=== PATIENT | male | born 1950 | race African-American/Black ===

== ENCOUNTER 2019-09-28 15:07 | Inpatient (IN) | payer OTHER, MEDICARE ==
[~2019-09-28] VITALS: Ht 188 cm; Wt 96.8 kg
[2019-09-28 15:40] LABS: BASOPHILS PERCENT AUTO 1 % (0-2); EOSINOPHILS ABSOLUTE AUTO 0.34 K/mm3 (0.00-0.68); EOSINOPHILS PERCENT AUTO 3 % (0-6); Hematocrit 37.1 % (37.0-53.0); Hemoglobin 12.8 g/dL (13.5-17.5); IMMATURE GRAN ABSOLUTE AUTO 0.05 K/mm3 (0.00-0.10); IMMATURE GRAN PERCENT AUTO 0 % (0-1); LYMPHOCYTES ABSOLUTE AUTO 1.98 K/mm3 (0.84-5.20); LYMPHOCYTES PERCENT AUTO 16 % (21-46); MONOCYTES ABSOLUTE AUTO 1.16 K/mm3 (0.16-1.47); MONOCYTES PERCENT AUTO 9 % (4-13); Mean Corpuscular HGB 30.9 pg (26.0-34.0); Mean Corpuscular HGB Conc 34.5 g/dL (31.5-36.5); Mean Corpuscular Volume 90 fL (80-100); Mean Platelet Volume 12.3 fL (9.1-12.4); NEUTROPHILS ABSOLUTE AUTO 8.65 K/mm3 (1.96-9.15); NEUTROPHILS PERCENT AUTO 71 % (41-73); Platelet Count 239 K/mm3 (150-400); RDW Coefficient Variation 15.7 % (11.7-14.2); RDW Standard Deviation 51.2 fL (35.1-46.3); Red Blood Cell Count 4.14 M/mm3 (4.30-5.90); White Blood Cell Count 12.28 K/mm3 (4.00-11.30)
[2019-09-28 15:45] LABS: Source, Urine Clean Catch
[2019-09-28 16:02] LABS: Appearance, Urine Clear (Clear); Blood, Urine 1+ (Neg); Color, Urine Amber (P-Yellow); Glucose Qualitative, Urine Neg (Neg); Ketones, Urine 1+ (Neg); Leukocyte Esterase, Urine 1+ (Neg); Nitrite, Urine Neg (Neg); Protein, Urine 1+ (Neg); Specific Gravity, Urine 1.025 (1.003-1.022); Urobilinogen, Urine 3+ (Normal)
[2019-09-28 16:09] LABS: Alanine Aminotransfer (ALT/SGP 46 U/L (12-78); Albumin, Blood 2.9 g/dL (3.4-5.0); Albumin/Globulin Ratio 0.6 (0.8-1.8); Alk Phos 220 U/L (50-136); Anion Gap 7 mmol/L (6-16); Aspartate Aminotrans (AST/SGOT 47 U/L (12-37); Bilirubin, Total 12.9 mg/dL (0.1-1.0); Blood Urea Nitrogen 13 mg/dL (8-24); Bun/Creatinine Ratio 16.5 (12.0-20.0); CO2, Blood 25 mmol/L (21-32); Calcium, Blood 8.9 mg/dL (8.5-10.1); Chloride, Blood 107 mmol/L (98-108); Creatinine, Blood 0.79 mg/dL (0.60-1.20); Globulin, Blood 4.5 g/dL (2.2-4.0); Glomerular Filtration Rate >60 (60-); Glucose, Blood 122 mg/dL (70-99); Potassium, Blood 3.9 mmol/L (3.5-5.5); Sodium, Blood 139 mmol/L (136-145); Total Protein, Blood 7.4 g/dL (6.4-8.2)
[2019-09-28 16:35] LABS: Bilirubin, Urine 3+ (Neg)
[2019-09-28 16:37] LABS: Bacteria Mod /hpf; Squamous Epithelial Cells Few /hpf (Few)
[2019-09-28] MEDS ORDERED: METF500 PO (19:37)
[2019-09-28] MEDS ORDERED: PAXIL40 M1 PO (19:38)
[2019-09-28] MEDS ORDERED: AMLO10 PO (19:38)
[2019-09-28] MEDS ORDERED: LISI20 PO (19:38)
[2019-09-28 20:14] LABS: International Normalized Ratio 1.3; Prothrombin Time Results 13.7 Sec (9.7-11.5)
[2019-09-28] MEDS ORDERED: OLAN20 MM (21:14)
--- NOTE | 2019-09-29 04:56 | NUR ---
SHIFT SUMMARY RECIEVED REPORT FROM GABY GARZA, ED. ARRIVED TO MEDICAL FLOOR VIA STRETCHER @ 2147. NO TRANSFER ASSISTANCE NEEDED. ORIENTED TO ROOM AND CALL SYSTEM. A/O, ABLE TO MAKE NEEDS KNOWN. COOPERATIVE WITH CARE. ANSWERS QUESTIONS APPROPRIATELY. NO ACUTE CHANGES NOTED OVERNIGHT. APPEARED TO REST MUCH OF SHIFT. IV FLUIDS INFUSING WITHOUT COMPLICATION. HYPERTENSION NOTED AT BEGINNING OF SHIFT; ALL OTHER VITALS WNL/AFEBRILE. BED REMAINED IN LOWEST POSITION. CALL LIGHT AND BELONGINGS WITHIN REACH. WCTM. REPORT TO DALE GARZA.
[2019-09-29 05:21] LABS: Hematocrit 36.1 % (37.0-53.0); Hemoglobin 12.6 g/dL (13.5-17.5); Mean Corpuscular HGB 31.3 pg (26.0-34.0); Mean Corpuscular HGB Conc 34.9 g/dL (31.5-36.5); Mean Corpuscular Volume 90 fL (80-100); Mean Platelet Volume 12.8 fL (9.1-12.4); Platelet Count 222 K/mm3 (150-400); RDW Coefficient Variation 15.5 % (11.7-14.2); RDW Standard Deviation 50.4 fL (35.1-46.3); Red Blood Cell Count 4.03 M/mm3 (4.30-5.90); White Blood Cell Count 12.19 K/mm3 (4.00-11.30)
[2019-09-29 05:42] LABS: Alanine Aminotransfer (ALT/SGP 41 U/L (12-78); Albumin, Blood 2.7 g/dL (3.4-5.0); Albumin/Globulin Ratio 0.6 (0.8-1.8); Alk Phos 203 U/L (50-136); Anion Gap 6 mmol/L (6-16); Aspartate Aminotrans (AST/SGOT 40 U/L (12-37); Bilirubin, Total 11.8 mg/dL (0.1-1.0); Blood Urea Nitrogen 12 mg/dL (8-24); Bun/Creatinine Ratio 14.7 (12.0-20.0); CO2, Blood 26 mmol/L (21-32); Calcium, Blood 8.6 mg/dL (8.5-10.1); Chloride, Blood 108 mmol/L (98-108); Creatinine, Blood 0.82 mg/dL (0.60-1.20); Globulin, Blood 4.3 g/dL (2.2-4.0); Glomerular Filtration Rate >60 (60-); Glucose, Blood 122 mg/dL (70-99); Potassium, Blood 4.3 mmol/L (3.5-5.5); Sodium, Blood 140 mmol/L (136-145)
--- NOTE | 2019-09-29 14:46 | NUR ---
PT GAVE THIS SALVAGE ENGINEER PERMISSION TO TAKE CARE OF HIM TODAY 09/29/2019.
--- NOTE | 2019-09-29 18:35 | NUR ---
ALERT. ORIENTED. PLEASANT. DENIES PAIN. SKIN JAUNDICE. UNLABORED RESPIRATIONS. AWARE WAITING FOR BED OPENING AT [facility]. AWARE WILL BE NPO AFTER MIDNITE DUE TO POSSIBLE SURGERY IN [place]. [facility]
--- NOTE | 2019-09-30 04:43 | NUR ---
RESTAURANT SERVER SUMMARY NO ACUTE CHANGES THIS SHIFT. PT AAOX4 AND INDEPENDENT IN ROOM. NPO SINCE MIDNIGHT IN PREP FOR POSSIBLE PROCEDURE LATER TODAY [place] [facility] [place] DENIES PAIN, N/V. CONTINUED ON UNASYN Q6H. VSS, WILL CONTINUE TO MONITOR.
[2019-09-30 04:51] LABS: BASOPHILS ABSOLUTE AUTO 0.14 K/mm3 (0.00-0.23); BASOPHILS PERCENT AUTO 1 % (0-2); EOSINOPHILS ABSOLUTE AUTO 0.66 K/mm3 (0.00-0.68); EOSINOPHILS PERCENT AUTO 6 % (0-6); Hemoglobin 12.2 g/dL (13.5-17.5); IMMATURE GRAN ABSOLUTE AUTO 0.06 K/mm3 (0.00-0.10); IMMATURE GRAN PERCENT AUTO 1 % (0-1); LYMPHOCYTES ABSOLUTE AUTO 1.99 K/mm3 (0.84-5.20); LYMPHOCYTES PERCENT AUTO 17 % (21-46); MONOCYTES ABSOLUTE AUTO 1.24 K/mm3 (0.16-1.47); MONOCYTES PERCENT AUTO 11 % (4-13); Mean Corpuscular HGB 30.7 pg (26.0-34.0); Mean Corpuscular HGB Conc 34.9 g/dL (31.5-36.5); Mean Corpuscular Volume 88 fL (80-100); Mean Platelet Volume 12.2 fL (9.1-12.4); NEUTROPHILS ABSOLUTE AUTO 7.32 K/mm3 (1.96-9.15); NEUTROPHILS PERCENT AUTO 64 % (41-73); Platelet Count 222 K/mm3 (150-400); RDW Coefficient Variation 15.4 % (11.7-14.2); Red Blood Cell Count 3.97 M/mm3 (4.30-5.90); White Blood Cell Count 11.41 K/mm3 (4.00-11.30)
[2019-09-30 05:12] LABS: Alanine Aminotransfer (ALT/SGP 41 U/L (12-78); Albumin, Blood 2.8 g/dL (3.4-5.0); Albumin/Globulin Ratio 0.7 (0.8-1.8); Alk Phos 199 U/L (50-136); Anion Gap 4 mmol/L (6-16); Aspartate Aminotrans (AST/SGOT 46 U/L (12-37); Bilirubin, Total 11.1 mg/dL (0.1-1.0); Blood Urea Nitrogen 12 mg/dL (8-24); Bun/Creatinine Ratio 15.8 (12.0-20.0); CO2, Blood 27 mmol/L (21-32); Calcium, Blood 8.6 mg/dL (8.5-10.1); Chloride, Blood 107 mmol/L (98-108); Creatinine, Blood 0.76 mg/dL (0.60-1.20); Globulin, Blood 4.2 g/dL (2.2-4.0); Glomerular Filtration Rate >60 (60-); Glucose, Blood 131 mg/dL (70-99); Potassium, Blood 3.7 mmol/L (3.5-5.5); Sodium, Blood 138 mmol/L (136-145)
--- NOTE | 2019-09-30 18:13 | NUR ---
SHIFT SUMMARY PT HAS BEEN SLEEPING ON AND OFF THIS SHIFT. NO COMPLAINTS OF PAIN OR NAUSEA THIS SHIFT AND HAS HAD A GOOD APPETITE. PT INDEPENDENT IN ROOM. IV ANTIBIOTICS PER EMAR. PLANS FOR PT TO TRANSFER TO [facility] WHEN BED AVAILABLE. NO ACUTE CHANGES THIS SHIFT. WILL CONTINUE TO MONITOR AND REPORT TO ONCOMING RN.
--- NOTE | 2019-10-01 04:38 | NUR ---
SHIFT SUMMARY: PT IS ALERT AND ORIENTED. PT IS CALM AND COOPERATIVE WITH CARE. PT CALLS APPROPRIATELY. PT IS INDEPENDENT IN THE ROOM. PT DENIES PAIN, NAUSEA, VOMITING, AND SOB. PT SLEPT MUCH OF THE NIGHT WHEN NOT DISTURBED. NO ACUTE CHANGES OR COMPLICATIONS OVERNIGHT. BED IN LOW POSITION, CALL LIGHT WITHIN REACH. WILL REPORT TO DAY NURSE.
[2019-10-01 05:15] LABS: BASOPHILS ABSOLUTE AUTO 0.16 K/mm3 (0.00-0.23); BASOPHILS PERCENT AUTO 1 % (0-2); EOSINOPHILS ABSOLUTE AUTO 0.87 K/mm3 (0.00-0.68); EOSINOPHILS PERCENT AUTO 8 % (0-6); Hematocrit 36.9 % (37.0-53.0); Hemoglobin 12.6 g/dL (13.5-17.5); IMMATURE GRAN ABSOLUTE AUTO 0.06 K/mm3 (0.00-0.10); IMMATURE GRAN PERCENT AUTO 1 % (0-1); LYMPHOCYTES ABSOLUTE AUTO 2.88 K/mm3 (0.84-5.20); LYMPHOCYTES PERCENT AUTO 25 % (21-46); MONOCYTES ABSOLUTE AUTO 1.07 K/mm3 (0.16-1.47); MONOCYTES PERCENT AUTO 9 % (4-13); Mean Corpuscular HGB 30.4 pg (26.0-34.0); Mean Corpuscular HGB Conc 34.1 g/dL (31.5-36.5); Mean Corpuscular Volume 89 fL (80-100); Mean Platelet Volume 12.7 fL (9.1-12.4); NEUTROPHILS ABSOLUTE AUTO 6.46 K/mm3 (1.96-9.15); NEUTROPHILS PERCENT AUTO 56 % (41-73); Platelet Count 241 K/mm3 (150-400); RDW Coefficient Variation 15.7 % (11.7-14.2); RDW Standard Deviation 50.1 fL (35.1-46.3); Red Blood Cell Count 4.14 M/mm3 (4.30-5.90)
[2019-10-01 05:36] LABS: Alanine Aminotransfer (ALT/SGP 37 U/L (12-78); Albumin, Blood 2.8 g/dL (3.4-5.0); Albumin/Globulin Ratio 0.7 (0.8-1.8); Alk Phos 188 U/L (50-136); Anion Gap 5 mmol/L (6-16); Aspartate Aminotrans (AST/SGOT 43 U/L (12-37); Bilirubin, Total 5.9 mg/dL (0.1-1.0); Blood Urea Nitrogen 16 mg/dL (8-24); Bun/Creatinine Ratio 20.1 (12.0-20.0); CO2, Blood 26 mmol/L (21-32); Calcium, Blood 8.5 mg/dL (8.5-10.1); Chloride, Blood 107 mmol/L (98-108); Globulin, Blood 4.3 g/dL (2.2-4.0); Glomerular Filtration Rate >60 (60-); Glucose, Blood 136 mg/dL (70-99); Potassium, Blood 4.1 mmol/L (3.5-5.5); Sodium, Blood 138 mmol/L (136-145); Total Protein, Blood 7.1 g/dL (6.4-8.2)
--- NOTE | 2019-10-01 19:21 | NUR ---
SHIFT SUMMARY PT INDEPENDENT IN ROOM. NO COMPLAINTS OF INCREASED PAIN OR NAUSEA THIS SHIFT. PT TOOK SHOWER TODAY AND WENT FOR A WALK IN THE HALLS. PLANS FOR POSSIBLE DISCHARGE TOMORROW IF LABS BETTER. NO BED IN [facility] [place] AT THIS TIME. CALL LIGHT IN REACH. REPORT GIVEN TO BLADIMIR GARZA.
--- NOTE | 2019-10-01 23:41 | NUR ---
TRANSFER: PATIENT IS TRANSFERED TO ROOM 306, REPORT GIVEN TO EBER MEDLEY RN.
--- NOTE | 2019-10-02 00:01 | NUR ---
7169 REPORT RECEIVED FROM KAYLA PRUITT; ALERT AND ORIENTED X 4; DENIES PAIN OR NAUSEA.
--- NOTE | 2019-10-02 04:04 | NUR ---
SHIFT SUMMARY: 68 Y/O MALE RESTED COMFORTABLY ALL SHIFT; DENIES PAIN OR NAUSEA; ALERT AND ORIENTED X 4; ABLE AMBULATE BATHROOM AND BACK PER SELF; BED LOW POSITION WITH CALL LIGHT AT SIDE.
[2019-10-02 05:32] LABS: Alanine Aminotransfer (ALT/SGP 49 U/L (12-78); Albumin, Blood 2.9 g/dL (3.4-5.0); Albumin/Globulin Ratio 0.6 (0.8-1.8); Alk Phos 216 U/L (50-136); Anion Gap 5 mmol/L (6-16); Aspartate Aminotrans (AST/SGOT 62 U/L (12-37); Bilirubin, Total 10.6 mg/dL (0.1-1.0); Blood Urea Nitrogen 12 mg/dL (8-24); Bun/Creatinine Ratio 15.8 (12.0-20.0); CO2, Blood 26 mmol/L (21-32); Calcium, Blood 8.8 mg/dL (8.5-10.1); Chloride, Blood 106 mmol/L (98-108); Creatinine, Blood 0.76 mg/dL (0.60-1.20); Globulin, Blood 4.5 g/dL (2.2-4.0); Glomerular Filtration Rate >60 (60-); Glucose, Blood 143 mg/dL (70-99); Potassium, Blood 3.9 mmol/L (3.5-5.5); Sodium, Blood 137 mmol/L (136-145); Total Protein, Blood 7.4 g/dL (6.4-8.2)
--- NOTE | 2019-10-02 08:38 | NUR ---
REPORT RECEIVED FROM NOC NURSE, CALL LIGHT IN REACH, RM AIR, SALINE LOCKED, PULSES, LIMBS STRONG, ROM FULL UP AND WALKING OUT TO SMOKE, DECLINED INFORMAITN R/STOPING, LS CLEAR, PERRL, BT+4Q, SOFT NONTENDER, STATES HURT DURING NIGHT BUT NOT NOW, WILL CONTINUE TO MONITOR AND TREAT
--- NOTE | 2019-10-02 17:59 | NUR ---
a+o, saline locked on rm air, awaiting placement at [facility], no major acute changes noted during shift, up adlib, walks out to go smoke between meals and medications, cooperative with care, no coverage needed for blood sugar, denies pain, will continue to montitor and treat until provide bsr with pt and noc nurse
--- NOTE | 2019-10-03 04:59 | NUR ---
PT A/O X4. INDEPENDENT IN ROOM. VSS. DENIES CHEST PAIN, NAUSEA, SOB. NO ACUTE CHANGES. CALL LIGHT WITHIN REACH.
[2019-10-03 05:48] LABS: BASOPHILS ABSOLUTE AUTO 0.11 K/mm3 (0.00-0.23); BASOPHILS PERCENT AUTO 1 % (0-2); EOSINOPHILS ABSOLUTE AUTO 0.53 K/mm3 (0.00-0.68); EOSINOPHILS PERCENT AUTO 4 % (0-6); Hematocrit 36.7 % (37.0-53.0); Hemoglobin 12.9 g/dL (13.5-17.5); IMMATURE GRAN ABSOLUTE AUTO 0.06 K/mm3 (0.00-0.10); IMMATURE GRAN PERCENT AUTO 1 % (0-1); LYMPHOCYTES ABSOLUTE AUTO 2.15 K/mm3 (0.84-5.20); LYMPHOCYTES PERCENT AUTO 16 % (21-46); MONOCYTES ABSOLUTE AUTO 1.51 K/mm3 (0.16-1.47); MONOCYTES PERCENT AUTO 11 % (4-13); Mean Corpuscular HGB Conc 35.1 g/dL (31.5-36.5); Mean Corpuscular Volume 88 fL (80-100); NEUTROPHILS ABSOLUTE AUTO 8.97 K/mm3 (1.96-9.15); NEUTROPHILS PERCENT AUTO 67 % (41-73); Platelet Count 228 K/mm3 (150-400); RDW Coefficient Variation 15.9 % (11.7-14.2); RDW Standard Deviation 50.3 fL (35.1-46.3); Red Blood Cell Count 4.16 M/mm3 (4.30-5.90); White Blood Cell Count 13.33 K/mm3 (4.00-11.30)
[2019-10-03 05:56] LABS: Mean Platelet Volume 13.5 fL (9.1-12.4)
[2019-10-03 06:04] LABS: Alanine Aminotransfer (ALT/SGP 48 U/L (12-78); Albumin, Blood 2.9 g/dL (3.4-5.0); Albumin/Globulin Ratio 0.7 (0.8-1.8); Alk Phos 233 U/L (50-136); Anion Gap 7 mmol/L (6-16); Aspartate Aminotrans (AST/SGOT 58 U/L (12-37); Bilirubin, Total 12.8 mg/dL (0.1-1.0); Blood Urea Nitrogen 14 mg/dL (8-24); CO2, Blood 25 mmol/L (21-32); Chloride, Blood 104 mmol/L (98-108); Creatinine, Blood 0.74 mg/dL (0.60-1.20); Globulin, Blood 4.4 g/dL (2.2-4.0); Glomerular Filtration Rate >60 (60-); Glucose, Blood 148 mg/dL (70-99); Potassium, Blood 3.9 mmol/L (3.5-5.5); Sodium, Blood 136 mmol/L (136-145); Total Protein, Blood 7.3 g/dL (6.4-8.2)
--- NOTE | 2019-10-03 17:43 | NUR ---
PT AOX4 AND COOPERATIVE OF CARE. INDEPENDENT AND WILL GO OUT FOR FREQUENT WALKS. PT DENIES PAIN AT THIS TIME. PT HAS BEEN GOOD ABOUT BEING AROUND FOR HIS IVs. NO DISTRESS NOTED WILL CONTINUE TO MONITOR.
--- NOTE | 2019-10-04 05:49 | NUR ---
SYSTEM ADMINISTRATION ADVISOR SUMMARY NO ACUTE CHANGES THIS SHIFT. PT AAOX4 AND INDEPENDENT, GOES OUTSIDE AT TIMES. CONTINUES ON IV UNASYN Q6. DENIES PAIN FOR THE MOST PART BUT DOES STATE THAT HE HAS OCCASIONAL ABD DISCOMFORT THAT COMES AND GOES. PT STATES "ITS NOT REALLY WORTH MENTIONING". PT STILL WAITING FOR TRANSFER TO FACILITY TO COMPLETE ERCP. VSS, WILL CONTINUE TO MONITOR.
--- NOTE | 2019-10-04 10:10 | NUR ---
Report received from noc nurse, call light in reach, checked availability at , informed dr of lack there of, he stated he would take care of it tomorrow when staff were better equiped, pt resting in bed acknowleged information and ramifications, call light in reach, saline locked, bed in low position, stil havingsome discomfort this am but non right now, states it passes and declined treatment, will continue to monior and treat, pt easy to work with
--- NOTE | 2019-10-04 18:30 | NUR ---
a+o, medicated as prescribed, still waiting on bed in RV, call light in reach, saline locked, rm air, no acute changes in condition noted during shift, sitting up watching tv
--- NOTE | 2019-10-05 04:08 | NUR ---
RETAIL SALESMAN SUMMARY PT A/O X4. INDEPENDENT IN ROOM. DENIES PAIN, SOB, NAUSEA. NO ACUTE CHANGES. HAS BEEN PLEASANT. VSS. WILL CONTINUE TO MONITOR. WAITING FOR PLACEMENT. CALL LIGHT WITHIN REACH.
[2019-10-05 05:05] LABS: BASOPHILS ABSOLUTE AUTO 0.14 K/mm3 (0.00-0.23); BASOPHILS PERCENT AUTO 1 % (0-2); EOSINOPHILS ABSOLUTE AUTO 0.64 K/mm3 (0.00-0.68); EOSINOPHILS PERCENT AUTO 5 % (0-6); Hematocrit 36.2 % (37.0-53.0); Hemoglobin 12.8 g/dL (13.5-17.5); IMMATURE GRAN ABSOLUTE AUTO 0.07 K/mm3 (0.00-0.10); IMMATURE GRAN PERCENT AUTO 1 % (0-1); LYMPHOCYTES ABSOLUTE AUTO 2.11 K/mm3 (0.84-5.20); LYMPHOCYTES PERCENT AUTO 16 % (21-46); MONOCYTES ABSOLUTE AUTO 1.47 K/mm3 (0.16-1.47); MONOCYTES PERCENT AUTO 11 % (4-13); Mean Corpuscular HGB 30.8 pg (26.0-34.0); Mean Corpuscular HGB Conc 35.4 g/dL (31.5-36.5); Mean Corpuscular Volume 87 fL (80-100); Mean Platelet Volume 12.7 fL (9.1-12.4); NEUTROPHILS ABSOLUTE AUTO 8.42 K/mm3 (1.96-9.15); NEUTROPHILS PERCENT AUTO 66 % (41-73); Platelet Count 231 K/mm3 (150-400); RDW Coefficient Variation 16.2 % (11.7-14.2); Red Blood Cell Count 4.15 M/mm3 (4.30-5.90); White Blood Cell Count 12.85 K/mm3 (4.00-11.30)
[2019-10-05 05:29] LABS: Alanine Aminotransfer (ALT/SGP 46 U/L (12-78); Albumin, Blood 2.8 g/dL (3.4-5.0); Albumin/Globulin Ratio 0.6 (0.8-1.8); Alk Phos 242 U/L (50-136); Anion Gap 7 mmol/L (6-16); Aspartate Aminotrans (AST/SGOT 53 U/L (12-37); Bilirubin, Total 13.1 mg/dL (0.1-1.0); Blood Urea Nitrogen 12 mg/dL (8-24); Bun/Creatinine Ratio 16.2 (12.0-20.0); CO2, Blood 25 mmol/L (21-32); Calcium, Blood 8.9 mg/dL (8.5-10.1); Chloride, Blood 107 mmol/L (98-108); Creatinine, Blood 0.74 mg/dL (0.60-1.20); Globulin, Blood 4.6 g/dL (2.2-4.0); Glomerular Filtration Rate >60 (60-); Glucose, Blood 126 mg/dL (70-99); Potassium, Blood 3.8 mmol/L (3.5-5.5); Sodium, Blood 139 mmol/L (136-145); Total Protein, Blood 7.4 g/dL (6.4-8.2)
--- NOTE | 2019-10-05 13:28 | NUR ---
Discharge Summary A/Ox4, independent. Patient being transferred to [facility] RM# [id number] for ERCP procedure. Report called to receiving KAYLA Alba @ [phone]. Patient will be transported by [facility], transfer documents reviewed and signed by patient. IV will not be removed per loading unit operator Alex. Personal belongings will be bagged and sent with patient upon discharge.
== END 2019-10-05 14:01 | disposition short-term general hospital (02) | DRG 446 ==
LOC: ER 15:07 → MEDS 15:08
PROVIDERS: Hospitalist; Internal Medicine; Nurse Practitioner Acute Care; Physician Assistant; ADMIT Internal Medicine
DX: K80.51 Calculus of bile duct without cholangitis or cholecystitis with obstruction (principal); I10 Essential (primary) hypertension; E11.9 Type 2 diabetes mellitus without complications; F17.210 Nicotine dependence, cigarettes, uncomplicated; F43.10 Post-traumatic stress disorder, unspecified
CPT/HCPCS: 36415; 76705; 80053; 81001; 82140; 82947; 83690; 85025; 85027; 85610; 85730; 87086; 87147; 96365; 96374; 96375; 99285-25; A9270-GY; G0378; J0295; J3480; J7050

== ENCOUNTER 2022-06-20 08:47 | Day surgery (SDC) | payer OTHER ==
[~2022-06-20] VITALS: Ht 188 cm; Wt 104.0 kg
[~2022-06-20 08:47] MED LIST: AMLO10 PO; LISI20 PO; METF500 PO; OLAN20 MM; PAXIL40 M1 PO
--- NOTE | 2022-06-20 11:23 | NUR ---
History, Chart, Medications and Allergies reviewed before start of procedure. Patient confirms NPO status and agrees with scheduled surgery. PT BELONGINGS PLACED [facility]ERNE[facility]AF[facility].
--- NOTE | 2022-06-20 15:22 | NUR ---
PT AND FRIEND UPDATED WITH DELAY, PT AND FRIEND ARE CONCERNED ABOUT TIME FRAME AND LENGTH OF RECOVERY AND THAT IT WILL BE VERY LATE WHEN HE IS RECOVERING AND HE HAS A LONG DRIVE HOME. PT REQUESTING TO BE RESCHEDULED. DR COHEN NOTIFIED AND PT WAS VERY UNDERSTANDING THAT EMERGENCIES HAPPEN BUT STILL WANTS TO BE RESCHEDULED. INSTRUCTED PT TO CALL DR COHEN'S OFFICE. PT'S IV REMOVED AND AMBULATED OUT OF DEPARTMENT.
== END 2022-06-20 23:15 | disposition home or self-care (01) ==
LOC: ORSCMMR 08:47 → ORD 10:15 → ORSCMMR 23:15
DX: K43.6 Other and unspecified ventral hernia with obstruction, without gangrene (principal); K42.9 Umbilical hernia without obstruction or gangrene; Z53.8 Procedure and treatment not carried out for other reasons
CPT/HCPCS: 82947; J0690; J2704; J3010; J7120

== ENCOUNTER 2022-07-09 07:55 | Day surgery (SDC) | payer OTHER ==
[~2022-07-09] VITALS: Ht 188 cm; Wt 104.7 kg
--- NOTE | 2022-07-09 12:35 | NUR ---
Patient up to Ambulate independently. Gait steady. Discharge instructions reviewed with patient. Patient verbalizes understanding. Copy given to patient to take home. Dressing to procedure site clean, dry, intact with no visible drainage, swelling, erythema or bruising noted. Discharged via wheelchair to private car for ride home. BP BACK TO PT'S BASELINE. PT STATES "HE JUST FEELS EXCITED, THAT'S WHY MY BP IS UP", PT ENCOURAGED TO TAKE BP MEDS DIRECTED. ENCOUARAGED SMOKING CESSATION.
== END 2022-07-09 23:07 | disposition home or self-care (01) ==
LOC: ORSCMMR 07:55 → ORD 07-10 09:30
PROVIDERS: Surgery
PROC: 0WUF0JZ Supplement Abdominal Wall with Synthetic Substitute, Open Approach (ICD-10-PCS; principal; 2022-07-09 09:00)
DX: K43.6 Other and unspecified ventral hernia with obstruction, without gangrene (principal); K42.9 Umbilical hernia without obstruction or gangrene; E11.9 Type 2 diabetes mellitus without complications; I10 Essential (primary) hypertension; I25.10 Atherosclerotic heart disease of native coronary artery without angina pectoris; J44.9 Chronic obstructive pulmonary disease, unspecified; F20.9 Schizophrenia, unspecified; F43.10 Post-traumatic stress disorder, unspecified; Z79.899 Other long term (current) drug therapy
CPT/HCPCS: 82947; A9270; C1781; J0690; J2795; J7120

== ENCOUNTER 2024-01-23 13:18 | Day surgery (SDC) | payer OTHER ==
[~2024-01-23] VITALS: Ht 188 cm; Wt 102.6 kg
[~2024-01-23 13:18] MED LIST changes: +Balanced Salt Epinephrine Irrigation Solution 500 mL IR SCH; +Lidocaine HCl/Pf 1% 5 ML VIAL XX SCH; +Moxifloxacin HCL 0.5 MG/0.1 ML 0.4MLSYR RIGHTEYE SCH; +NS 500 ML IV ONE; +PHENYLEPHRINE\\TROPICAMIDE\\TETRACAINE OPHTHALMIC DILATING SOLN RIGHTEYE PRN; +Povidone-Iodine 450 DROP/30 ML Solution RIGHTEYE SCH; +Triamcinolone Inj Susp 40 MG / ML 1ML Vial INJ SCH; +Triamcinolone Inj Susp 40 MG / ML 1ML Vial ONE
[2024-01-23] MEDS ORDERED: NS 500 ML IV ONE (13:53)
[2024-01-23] MEDS ORDERED: Midazolam HCl 1MG / ML 2ML Vial ONE (14:37)
[2024-01-23] MEDS ORDERED: FentaNYL Citrate 50 MCG/ML 2 ML Injection ONE (14:41)
[2024-01-23] MEDS ORDERED: Tetracaine HCl 0.5% Opth Soln 15 ml RIGHTEYE ONE (14:46)
[2024-01-23 15:11] VITALS: BP 155/94
--- NOTE | 2024-01-23 15:15 | NUR ---
01/23/24 1515 Murphy Vega BP ELEVATED. PT STATED HE DID NOT TAKE HIS BP MEDICATION TODAY. DR. HARDIN NOTIFIED AND NOT CONCERNED.
== END 2024-01-23 15:28 | disposition home or self-care (01) ==
LOC: ORSCSDS 13:18
PROVIDERS: Ophthalmology
PROC: 08RJ3JZ Replacement of Right Lens with Synthetic Substitute, Percutaneous Approach (ICD-10-PCS; principal; 2024-01-23 14:30)
DX: E11.36 Type 2 diabetes mellitus with diabetic cataract (principal); H25.811 Combined forms of age-related cataract, right eye; H52.201 Unspecified astigmatism, right eye; Z96.1 Presence of intraocular lens; B18.2 Chronic viral hepatitis C; I25.10 Atherosclerotic heart disease of native coronary artery without angina pectoris; I10 Essential (primary) hypertension; J44.9 Chronic obstructive pulmonary disease, unspecified; F32.A Depression, unspecified; F17.210 Nicotine dependence, cigarettes, uncomplicated; F20.9 Schizophrenia, unspecified; F43.10 Post-traumatic stress disorder, unspecified; K76.0 Fatty (change of) liver, not elsewhere classified; Z79.899 Other long term (current) drug therapy; Z79.84 Long term (current) use of oral hypoglycemic drugs
CPT/HCPCS: 82947; J2250; J3010; J3301; J7040; V2632